=== PATIENT | female | born 1950 | race African-American/Black ===

== ENCOUNTER 2020-02-20 07:23 | Inpatient (IN) | payer MEDICARE, OTHER ==
--- NOTE | 2020-02-20 07:42 | PDOC ---
Attending Attestation - Resident Resident Name: RudimattElder - ED Attending Attestation I have performed the following: I have examined & evaluated the patient, The case was reviewed & discussed with the resident, I agree w/resident's findings & plan, Exceptions are as noted - HPI HPI: 69 yo F history DM, HTN, uterine CA s/p hysterectomy presents for leg swelling for the past 2 months. She was in the process of outpatient workup, including kidney ultrasound, CT a/p, was found to have a pelvic mass obstructing the ureter, poss DVT as per chart review. Patient was called by Dr. Pang based on abnormal radiology reading. Leg swelling is ongoing. No overall weight changes (she states she lost weight then gained it back), no fever, no night sweats. No leg pain. - Physicial Exam PE: GENERAL: Awake, alert, and fully oriented, in no acute distress HEAD: No signs of trauma EYES: PERRLA, EOMI, sclera anicteric, conjunctiva clear ENT: Auricles normal inspection, hearing grossly normal, nares patent, oropharynx clear without exudates. Moist mucosa NECK: Normal ROM, supple, no lymphadenopathy, JVD, or masses LUNGS: Breath sounds equal, clear to auscultation bilaterally. No wheezes, and no crackles HEART: Regular rate and rhythm, normal S1 and S2, no murmurs, rubs or gallops ABDOMEN: Soft, nontender, normoactive bowel sounds. No guarding, no rebound. No masses EXTREMITIES: Normal range of motion. 2+ pitting edema to LLE. No clubbing or cyanosis. No cords, erythema, or tenderness NEUROLOGICAL: Cranial nerves II through XII grossly intact. Normal speech. Motor and sensation intact SKIN: Warm, dry, normal turgor, no rashes or lesions noted. - Medical Decision Making Pt presents for newly diagnosed pelvic mass causing L hydronephrosis, LLE edema. Admit to hospital as per Dr. Pang. Discharge - Discharge Information Problems reviewed: Yes Clinical Impression/Diagnosis: Ureter obstruction Qualifiers: Laterality: left Qualified Code(s): N13.5 - Crossing vessel and stricture of ureter without hydronephrosis Condition: Stable - Follow up/Referral - Patient Discharge Instructions - Post Discharge Activity
[2020-02-20 07:44] VITALS: BMI 36.2
--- NOTE | 2020-02-20 08:14 | PDOC ---
History of Present Illness - General Chief Complaint: Edema Stated Complaint: SENT BY PCP Time Seen by Provider: 02/20/20 07:27 - History of Present Illness Initial Comments: 02/20/20 08:09 69 yo female with pmh of DM, HTN, and Uterine CA (s/p hysterectomy with last radiation in Aug) presenting to ED for ureter blockage on left side. Pt explains she was having left leg swelling for two months. Pt doppler was negative one month ago and was followed by nephrology. Nephrology ultrasounded her kidneys and showed a mass. Pt had an MRI of her pelvis which showed a blockage or her ureter. Dr. Harrison her PCP called yesterday to come to ED today for procedure. Pt today has no complaints besides left leg swelling. Pt deneis chest pain, sob, fever, chills, abdmoninal pain, dysuria or urinary frequency. PMH: DM, HTN, Uterine Ca PSH: Hysterectomy Allergies: NKDA Social: denies smoking and drugs; drinks wine occasionally PCP: Dr. Viri Pang Past History - Medical History Allergies/Adverse Reactions: Allergies Allergy/AdvReac Type Severity Reaction Status Date / Time No Known Allergies Allergy Verified 02/20/20 07:29 Home Medications: Ambulatory Orders Amlodipine Besylate 10 mg PO DAILY 02/01/19 Atenolol [Tenormin -] 100 mg PO DAILY 02/01/19 Glipizide 10 mg PO DAILY 02/01/19 Hydrochlorothiazide 12.5 mg PO DAILY 02/01/19 Acetaminophen [Tylenol .Regular Strength -] 650 mg PO Q6H PRN tablet 02/20/20 Cephalexin [Keflex] 500 mg PO BID 7 Days #14 capsule 02/20/20 COPD: No Diabetes: Yes HTN: Yes - Reproductive History Is Patient Now?: No (#): 4 Para: 4 Cervical CA: No Dysfunctional Uterine Bleeding: No Ectopic : No Endometrial CA: No Polycystic Ovaries: No Tubal Ligation: No - Psycho-Social/Smoking History Smoking History: Never smoked - Substance Abuse Hx (Audit-C & DAST Scrn) How often the patient has a drink containing alcohol: Never Score: In Men: 4 or > Positive; In Women: 3 or > Positive: 0 Screen Result (Pos requires Nsg. Audit-10AR): Negative In the last yr the pt used illegal drug/Rx for NonMed reason: No Score: Yes response is considered Positive: 0 Screen Result (Positive result requires Nsg. DAST-10): Negative Review of Systems - Review of Systems Comments:: 02/20/20 08:12 GENERAL/CONSTITUTIONAL: No fever or chills. No weakness. HEAD, EYES, EARS, NOSE AND THROAT: No change in vision. No ear pain or discharge. No sore throat. CARDIOVASCULAR: No chest pain or shortness of breath RESPIRATORY: No cough, wheezing, or hemoptysis. GASTROINTESTINAL: No nausea, vomiting, diarrhea or constipation. GENITOURINARY: No dysuria, frequency, or change in urination. MUSCULOSKELETAL: Left leg joint swelling SKIN: No rash NEUROLOGIC: No headache, vertigo, loss of consciousness, or change in strength/sensation. HEMATOLOGIC/LYMPHATIC: No anemia, easy bleeding, or history of blood clots. ALLERGIC/IMMUNOLOGIC: No hives or skin allergy. *Physical Exam - Vital Signs Last Vital Signs Temp Pulse Resp BP Pulse Ox 98.5 F 64 18 129/75 99 02/20/20 07:33 02/20/20 07:33 02/20/20 07:33 02/20/20 07:33 02/20/20 07:33 - Physical Exam 02/20/20 08:13 GENERAL: Awake, alert, and fully oriented, in no acute distress HEAD: No signs of trauma, normocephalic, atraumatic EYES: PERRLA, EOMI, sclera anicteric, conjunctiva clear ENT: Auricles normal inspection, hearing grossly normal, nares patent, oropharynx clear without exudates. Moist mucosa NECK: Normal ROM, supple, no lymphadenopathy, JVD, or masses LUNGS: No distress, speaks full sentences, clear to auscultation bilaterally HEART: Regular rate and rhythm, normal S1 and S2, Grade 3 Holosystolic murmur peripheral pulses normal and equal bilaterally. ABDOMEN: Soft, nontender, normoactive bowel sounds. No guarding, no rebound. No masses EXTREMITIES : Left lower ext nonpitting edema up to thigh NEUROLOGICAL: Cranial nerves II through XII grossly intact. Normal speech, normal gait, no focal sensorimotor deficits SKIN: Warm, Dry, normal turgor, no rashes or lesions noted Heart Score/ECG Review - ECG Impressions Comment:: 08/21/20 08:37 Normal sinus rhythm at 68 bpm Normal [place] QRS and QT interval NO ST changes noted ED Treatment Course - LABORATORY CBC & Chemistry Diagram: 02/20/20 08:00 02/20/20 08:00 - RADIOLOGY Radiology Studies Ordered: Category Date Time Status DUPLEX VASCUL US-2LEGS [US] Stat Ultrasound 02/20/20 08:03 Ordered Medical Decision Making - Medical Decision Making 02/20/20 08:14 69 yo female with pmh of dm, htn, and uterine ca presents to ED for ureter blockage. Pt explains she was called by Dr. Viri Pang to come to ED for pro cedure. Pt will get UA, cbc, cmp, coags, type and screen. Call made out to Dr. Pang practice waiting for call back. 02/20/20 09:56 Dr. Viri Kitchen was made aware pt is in hospital and will be admitted. Labs were not abnormal and DVT study was normal pt admitted Discharge - Discharge Information Problems reviewed: Yes Clinical Impression/Diagnosis: Ureter obstruction Qualifiers: Laterality: left Qualified Code(s): N13.5 - Crossing vessel and stricture of ureter without hydronephrosis Condition: Stable Disposition: HOME - Admission Yes - Follow up/Referral - Patient Discharge Instructions - Post Discharge Activity
[2020-02-20 08:29] LABS: BASO % 0.4 % (0-2.0); EOS % 1.5 % (0-4.5); HEMATOCRIT 38.5 % (32.4-45.2); LYMPH % 24.4 % (8-40); MCH 29.5 pg (25.7-33.7); MCHC 33.7 g/dl (32.0-36.0); MEAN CELL VOLUME 87.8 fl (80-96); MEAN PLT VOLUME 9.4 fl (7.5-11.1); MONO % 6.1 % (3.8-10.2); NEUT % 67.6 % (42.8-82.8); PLATELET COUNT 220 K/MM3 (134-434); RBC 4.38 M/mm3 (3.60-5.2); RDW 14.7 % (11.6-15.6); WHITE BLOOD COUNT 6.2 K/mm3 (4.0-10.0)
[2020-02-20 08:47] LABS: INR 0.94 (0.83-1.09); PROTHROMBIN TIME (PATIENT) 11.1 SEC (9.7-13.0)
[2020-02-20 08:50] LABS: ACTIVATED PTT 34.2 SECONDS (25.2-36.5); BILIRUBIN,TOTAL 0.5 mg/dL (0.2-1); BLOOD UREA NITROGEN 22.4 mg/dL (7-18); CALCIUM 10.2 mg/dL (8.5-10.1); CREATININE 1.6 mg/dL (0.55-1.3); POTASSIUM 3.5 mmol/L (3.5-5.1); TOT PROT 8.6 g/dl (6.4-8.2)
[2020-02-20 08:52] LABS: URINE APPEARANCE Clear; URINE BILIRUBIN Negative (NEGATIVE); URINE COLOR Yellow; URINE GLUCOSE (UA) Negative (NEGATIVE); URINE KETONE Negative (NEGATIVE); URINE LEUK ESTERASE Negative (NEGATIVE); URINE NITRITE Negative (NEGATIVE); URINE PROTEIN 2+ (NEGATIVE); URINE UROBILINOGEN 0.2 mg/dL (0.2-1.0)
--- NOTE | 2020-02-20 09:26 | HP ---
Admitting History and Physical - Primary Care Physician PCP: Viri Pang - Admission History of Present Illness: patient seen and examined in the emergency room Chart is reviewed Patient's daughter at bedside discussed with patient and patient's daughter In summary--- As per the emergency room records 69 yo female with pmh of DM, HTN, and Uterine CA (s/p hysterectomy with last radiation in Aug) presenting to ED for ureter blockage on left side. Pt explains she was having left leg swelling for two months. Pt doppler was negative one month ago and was followed by nephrology. Nephrology ultrasounded her kidneys and showed a mass. Pt had an MRI of her pelvis which showed a blockage or her ureter. Dr. Harrison her PCP called yesterday to come to ED today for procedure. Pt today has no complaints besides left leg swelling. Pt denies chest pain, sob, fever, chills, abdmoninal pain, dysuria or urinary frequency. PMH: DM, HTN, Uterine Ca PSH: Hysterectomy Allergies: NKDA Social: denies smoking and drugs; drinks wine occasionally PCP: Dr. Viri Pang patient at present no complaints Denies abdominal pain denies chest pain or shortness of breath passing urine History Source: Patient Limitations to Obtaining History: No Limitations - Past Medical History ...: No - Smoking History Smoking history: Never smoked Home Medications - Allergies Allergies/Adverse Reactions: Allergies Allergy/AdvReac Type Severity Reaction Status Date / Time No Known Allergies Allergy Verified 02/20/20 07:29 - Home Medications Home Medications: Ambulatory Orders Amlodipine Besylate 10 mg PO DAILY 02/01/19 Atenolol [Tenormin -] 100 mg PO DAILY 02/01/19 Cephalexin [Keflex] 500 mg PO BID 7 Days #14 capsule 02/01/19 Glipizide 10 mg PO DAILY 02/01/19 Hydrochlorothiazide 12.5 mg PO DAILY 02/01/19 Metformin HCl [Glucophage] 1,000 mg PO BID 02/01/19 Review of Systems - Review of Systems Constitutional: reports: No Symptoms Neck: reports: No Symptoms Cardiovascular: reports: No Symptoms Respiratory: reports: No Symptoms Genitourinary: reports: No Symptoms Neurological: reports: No Symptoms Psychiatric: reports: No Symptoms Physical Examination Vital Signs: Vital Signs Temperature 98.5 F 02/20/20 07:33 Pulse Rate 64 02/20/20 07:33 Respiratory Rate 18 02/20/20 07:33 Blood Pressure 129/75 02/20/20 07:33 O2 Sat by Pulse Oximetry (%) 99 02/20/20 07:33 Constitutional: Yes: No Distress, Calm, Obese Eyes: Yes: Conjunctiva Clear Neck: Yes: Supple Cardiovascular: Yes: Regular Rate and Rhythm Respiratory: Yes: CTA Bilaterally Gastrointestinal: Yes: Soft Edema: LLE: 1+ Neurological: Yes: Alert Labs: CBC, BMP 02/20/20 08:00 02/20/20 08:00 Imaging - Results Chest X-ray: Report Reviewed Cat Scan: Report Reviewed MRI: Report Reviewed Problem List - Problems (1) Ureter obstruction Code(s): N13.5 - CROSSING VESSEL AND STRICTURE OF URETER W/O HYDRONEPHROSIS (2) Uterine cancer Code(s): C55 - MALIGNANT NEOPLASM OF UTERUS, PART UNSPECIFIED (3) Diabetes Code(s): E11.9 - TYPE 2 DIABETES MELLITUS WITHOUT COMPLICATIONS (4) Hypertension Code(s): I10 - ESSENTIAL (PRIMARY) HYPERTENSION (5) Renal insufficiency, mild Code(s): N28.9 - DISORDER OF KIDNEY AND URETER, UNSPECIFIED Assessment/Plan discussed with Dr. Harrison admit Hold diabetic medications Keep nothing by mouth for now Interventional radiology consult as well as urology to follow Monitor BGM Will follow DVT prophylaxis
[2020-02-20] MEDS ORDERED: amLODIPine BESYLATE 10 MG TABLET (FP) PO SCH (10:00)
[2020-02-20] MEDS ORDERED: PATIENT'S OWN MEDICATION (NON-FORMULARY) (Atenolol [Tenormin -] 100 MG) PO SCH (10:00)
[2020-02-20] MEDS ORDERED: CEPHALEXIN MONOHYDRATE 500 MG CAPSULE (UD) PO SCH (10:00)
[2020-02-20] MEDS ORDERED: ATENOLOL 50 MG TABLET (FP) PO SCH (11:43)
[2020-02-20] MEDS ORDERED: ACETAMINOPHEN 325 MG TABLET (FP) PO PRN (12:49)
--- NOTE | 2020-02-20 14:17 | DS ---
Physical Examination Vital Signs: Vital Signs Temperature 97.7 F 02/20/20 13:41 Pulse Rate 63 02/20/20 13:41 Respiratory Rate 19 02/20/20 13:41 Blood Pressure 135/68 02/20/20 13:41 O2 Sat by Pulse Oximetry (%) 98 02/20/20 13:41 Findings/Remarks: see today's history and physical Labs: CBC, BMP 02/20/20 08:00 02/20/20 08:00 Discharge Summary Problems reviewed: Yes Reason For Visit: OBSTRUCTION OF URETER,PELVIC MASS Current Active Problems Diabetes (Acute) Hypertension (Acute) Renal insufficiency, mild (Acute) Ureter obstruction (Acute) Uterine cancer (Acute) Condition: Stable - Instructions Referrals: Viri Pang MD [Primary Care Provider] - - Home Medications Comprehensive Discharge Medication List: Ambulatory Orders Amlodipine Besylate 10 mg PO DAILY 02/01/19 Atenolol [Tenormin -] 100 mg PO DAILY 02/01/19 Glipizide 10 mg PO DAILY 02/01/19 Hydrochlorothiazide 12.5 mg PO DAILY 02/01/19 Acetaminophen [Tylenol .Regular Strength -] 650 mg PO Q6H PRN tablet 02/20/20 Cephalexin [Keflex] 500 mg PO BID 7 Days #14 capsule 02/20/20
[2020-02-20 15:11] VITALS: BP 145/79; PULSE 81; TEMP 98
[2020-02-20] MEDS ORDERED: INSULIN SLIDING SCALE (NOVOLOG) 1 VIAL SQ SCH (16:30)
[2020-02-20] MEDS ORDERED: HEPARIN NA (PORCINE) 5,000 UNITS/ML 1ML VIAL SQ SCH (22:00)
--- NOTE | 2020-02-23 22:06 | EKG ---
Test Reason : Blood Pressure : / mmHG Vent. Rate : 068 BPM Atrial Rate : 068 BPM P-R Int : 150 ms QRS Dur : 090 ms QT Int : 394 ms P-R-T Axes : 002 -14 -27 degrees QTc Int : 418 ms NORMAL SINUS RHYTHM VOLTAGE CRITERIA FOR LEFT VENTRICULAR HYPERTROPHY NONSPECIFIC T WAVE ABNORMALITY ABNORMAL ECG NO PREVIOUS ECGS AVAILABLE Confirmed by RAJANI GUY MD ([id number]) on 02/23/2020 10:05:49 PM Referred By: Confirmed By:RAJANI GUY MD
== END 2020-02-20 15:23 | disposition home or self-care (01) | DRG 694 ==
LOC: JER 07:23 → JERBED 09:43
PROVIDERS: ADMIT Internal Medicine; ATTEND Internal Medicine
PROC: 0T9430Z Drainage of Left Kidney Pelvis with Drainage Device, Percutaneous Approach (ICD-10-PCS; principal; 2020-02-20)
DX: N13.1 Hydronephrosis with ureteral stricture, not elsewhere classified (principal); E11.9 Type 2 diabetes mellitus without complications; I10 Essential (primary) hypertension; R19.04 Left lower quadrant abdominal swelling, mass and lump; E66.9 Obesity, unspecified; Z68.36 Body mass index [BMI] 36.0-36.9, adult
CPT/HCPCS: 36415; 50432; 80053; 81003; 85025; 85610; 85730; 86850; 86900; 86901; 87086; 93005; 93010; 93970-TC; 99285-25; U0003

== ENCOUNTER 2020-02-25 05:06 | Day surgery (SDC) | payer MEDICARE, OTHER ==
[2020-02-24 18:14] VITALS: BMI 36.2
[2020-02-25 12:37] VITALS: TEMP 97.1
[2020-02-25 14:11] VITALS: BP 166/78; PULSE 57
== END 2020-02-25 13:00 | disposition home or self-care (01) ==
LOC: JRADIR 05:06
PROVIDERS: ATTEND Radiology Diagnostic Radiology
PROC: 0T773DZ Dilation of Left Ureter with Intraluminal Device, Percutaneous Approach (ICD-10-PCS; principal; 2020-02-25)
DX: N13.8 Other obstructive and reflux uropathy (principal); C80.1 Malignant (primary) neoplasm, unspecified
CPT/HCPCS: 50693; C1769